=== PATIENT | female | born 1955 | race Caucasian/White ===

== ENCOUNTER 2017-03-19 05:04 | Inpatient (IN) | payer MEDICARE, OTHER ==
--- NOTE | ~2017-03-19 | HP ---
History And Physical [address] [place]. [address] NAME: JIA SARMIENTO : 59 STATUS : ADM IN PAT#: [id number] AGE: 61 ADM/REG DATE : 03/19/17 MR#: [id number] REPORT SERV DATE: 03/19/17 DICTATED BY: RAMONA SCOTT DATE: 03/19/17 REPORT STATUS : Draft TRANSCRIBED BY: MODL DATE: 03/19/17 DATE OF ADMISSION: 03/19/2017 CHIEF COMPLAINT: A 61-year-old female with cerebral palsy, now presenting with unresponsiveness and shortness of breath. HISTORY OF PRESENT ILLNESS: The patient's history was obtained through an interview with staff member from [facility]. The patient has chronic cerebral palsy with her organic brain syndrome, paraplegia, and dependent for all activities of daily living. Residing at [facility]. Over the last several days, she has had a poor appetite and has refused eating. No nausea or vomiting. No diarrhea. Then, just today she became increasingly short of breath with a nonproductive cough. No pain behavior. No fevers or chills. REVIEW OF SYSTEMS: Otherwise, a 14-point review of systems was obtained and was negative according to staff from [facility], although the person caring for patient was only been evaluating the patient during the nighttime hours. PAST MEDICAL HISTORY: 1. Hypothyroidism. 2. 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 3. Seizure disorder. Seen by Dr. Pal. 4. Gastroesophageal reflux disorder. 5. Dysphagia. 6. Rheumatic heart disease. 7. Tubular adenoma. 8. Elevated cholesterol. PAST SURGICAL HISTORY: 1. Vagal nerve stimulator. 2. Jejunostomy but then removed. Followed by Dr. Dickerson. ALLERGIES: NO KNOWN DRUG ALLERGIES. CODE STATUS: Sister who has power of state's attorney states the patient is a complete DNR, no intubation. SOCIAL HISTORY: No tobacco abuse. No alcohol abuse. Resides at [facility] in [place], [place] for the last three weeks. FAMILY HISTORY: Sister has power of state's attorney, lives in [place]. No known medical History And Physical [address] [address] NAME: JIA ASRMIENTO : 59 STATUS : ADM IN PAT#: [id number] AGE: 61 ADM/REG DATE : 03/19/17 MR#: [id number] REPORT SERV DATE: 03/19/17 DICTATED BY: RAMONA SCOTT DATE: 03/19/17 REPORT STATUS : Draft TRANSCRIBED BY: ERNESTO DATE: 03/19/17 conditions. CURRENT MEDICATIONS: Include bisacodyl, ear drops, Lipitor 20 mg p.o. daily, Klonopin 1 mg at bedtime, Forteo, Synthroid 25 mcg p.o. daily, vitamin D, antacid pills, milk of magnesia, Keppra 1750 mg p.o. b.i.d., Lamictal 150 mg p.o. b.i.d., simethicone. PHYSICAL EXAMINATION: VITAL SIGNS: Temperature 98.2, pulse 125, blood pressure 86/50, respiratory rate 20, and O2 saturation 96% on 6 L nasal cannula. GENERAL: Debilitated, toxic-appearing female, no evidence of distress, just extremely lethargic. HEENT: Pupils equal, round, and reactive to light. Nares are patent. Oropharynx is clear of obstruction. Very dry mucous membranes. NECK: Trachea midline. No thyromegaly. LYMPH: No cervical lymphadenopathy. No supraclavicular lymphadenopathy. RESPIRATORY: The patient does have scattered rhonchi on exam. No rales. No wheezes, nonlabored respiratory effort currently. CARDIOVASCULAR: Tachycardic, regular rhythm. No murmurs, rubs, or gallops. No extremity edema is appreciated. ABDOMEN: Soft, nontender, nondistended. Normal bowel sounds auscultated throughout. No hepatosplenomegaly. DERMATOLOGICAL: Warm and dry extremities. No pallor. No cyanosis. Tenting of the skin to suggest dehydration is noted. PSYCHIATRIC: Flat affect. Poorly responsive even to painful stimuli, irritable. LABORATORY DATA: White blood cell count 13.9, hemoglobin 18, hematocrit 64, platelets 131. Sodium 185, potassium 3.7, chloride 139, bicarb greater than 45, BUN 98, creatinine 2.61, glucose 188. AST 48, alkaline phosphatase 194. ABG demonstrates pH 7.42, a PaCO2 of 66, a PaO2 of 88, bicarb of 42. STUDIES: 1. Chest x-ray shows right upper lung patchy disease and basilar atelectasis. 2. EKG by my own evaluation shows sinus tachycardia. ASSESSMENT AND PLAN: 1. Severe hypernatremia with sodium of 185 and a 6.5 L calculated water deficit. Place on D10W and monitor basic metabolic panel closely. 2. Pneumonia. Check blood cultures. Place on IV antibiotics. 3. Acute renal failure. Place on IV fluids. Monitor. 4. Cerebral palsy with paraplegia. 5. DNR confirmed by sister, power of state's attorney. KPL/MODL Ramona Epstein History And Physical [address] [place]. [address] NAME: JIA SARMIENTO : 59 STATUS : ADM IN [facility]#: [id number] AGE: 61 ADM/REG DATE : 03/19/17 MR#: [id number] REPORT SERV DATE: 03/19/17 DICTATED BY: RAMONA SCOTT DATE: 03/19/17 REPORT STATUS : Draft TRANSCRIBED BY: ERNESTO DATE: 03/19/17 Vimal Scott / [id number] CC: Jessica Arceo M.D.
--- NOTE | ~2017-03-19 | CN ---
Consultation Report [address] [place]. [address] NAME: JIA ALEXANDRA : 59 STATUS : ADM IN PAT#: [id number] AGE: 61 ADM/REG DATE : 03/19/17 MR#: [id number] REPORT SERV DATE: 03/20/17 DICTATED BY: MAXIMILIANO CASTELLANO DATE: 03/20/17 REPORT STATUS : Draft TRANSCRIBED BY: ERNESTO DATE: 03/20/17 CONSULTATION DATE OF CONSULTATION: 03/20/2017 REASON FOR CONSULTATION: ST-elevations on EKG. HISTORY OF PRESENT ILLNESS: Ms Alexandra is a chronically ill 61-year-old female with a history of cerebral palsy and chronic paraplegia, bed-ridden status, nonverbal, DNR status, rheumatic heart disease, hyperlipidemia, and acid reflux, who was admitted yesterday with findings of decreased appetite as well as increased shortness of breath per her caregiver and family in the setting of pneumonia and sepsis. She has been started on IV antibiotics; however, this last night, was found to have ST-elevations on telemetry which prompted an EKG this morning demonstrating diffuse ST-elevations. This prompted consultation to Cardiology for further evaluation and care. As the patient is entirely nonverbal and not interactive, I am unable to obtain any further history. In speaking with the hospitalist and nurse; however, the patient has not demonstrated any overt signs of distress, or hemodynamic instability. ALLERGIES: NO KNOWN DRUG ALLERGIES. PAST MEDICAL HISTORY: As above. FAMILY HISTORY: The patient has a sister who functions as her Power of Pulp Cooker. She has confirmed DNR status and is fully in favor of conservative medical management. SOCIAL HISTORY: The patient stayed at [place], [place] over the past three weeks. She is bed-ridden. She is nonverbal. REVIEW OF SYSTEMS: Unable to obtain, given the patient's clinical status. HOME MEDICATIONS: 1. Lipitor. 2. Vitamin D. 3. Klonopin. 4. Lamictal. 5. Keppra. 6. Synthroid. 7. Milk of Magnesia. 8. Mytab Gas. 9. Forteo. PHYSICAL EXAMINATION: Consultation Report [place] [id number] [facility] [place]. [address] NAME: JIA ALEXANDRA : 59 STATUS : ADM IN PAT#: [id number] AGE: 61 ADM/REG DATE : 03/19/17 MR#: [id number] REPORT SERV DATE: 03/20/17 DICTATED BY: MAXIMILIANO CASTELLANO DATE: 03/20/17 REPORT STATUS : Draft TRANSCRIBED BY: ERNESTO DATE: 03/20/17 VITAL SIGNS: Blood pressure 129/63, pulse 65, and temperature 97.5. GENERAL: Chronically ill, bed-ridden, nonverbal, contracted extremities bilaterally upper and lower. NEUROLOGIC: Normocephalic, atraumatic, again nonverbal, no obvious focal new deficits present. HEENT: Moist mucous membranes, anicteric sclerae, no nasal discharge. NECK: No JVD, no carotid bruit. LUNGS: Clear to auscultation bilaterally, no wheezes, rales or rhonchi. CV: Regular rhythm, normal S1/S2, no murmurs, rubs or gallops. ABD: Soft, non-tender, non-distended, no rebound or guarding. EXTREMITIES: Contracted throughout (chronic), 1+ pulses throughout otherwise. SKIN: Warm, dry and intact; no rash. PERTINENT TEST FINDINGS: White blood cell count 10.3, hemoglobin 11.6, and platelets 74. Troponin 0.14 and 0.07 most recently. Potassium 3.3, sodium 166, and creatinine 1.24. EKG on my personal review with sinus rhythm at 76 beats per minute with a normal mean QRS axis, diffuse CA depressions and diffuse ST-elevations consistent with acute pericarditis. IMPRESSION AND PLAN: Ms Alexandra is a 61-year-old female, who is chronically ill with cerebral palsy of bed-ridden status, nonverbal and DNR, who was admitted with decreased appetite and increased shortness of breath in the setting of pneumo-sepsis, found to have diffuse ST-elevations and CA depressions most suggestive of pericarditis. Her cardiac enzymes are trivially elevated and down trending currently at 0.07, lowering the likelihood of myopericarditis. Accordingly, I recommend continued antibiotic and supportive care therapy with regard to her pneumo-sepsis. She is unable to take any oral medications, therefore dosing her with NSAIDs or colchicine is probably not feasible at this point in time. Should she have persistent pericarditis despite completing a full course of antibiotics, IV specific therapies may be explored if appropriate at that time. Otherwise, obtaining an echocardiogram will be helpful in the interim. LEE ANN/ERNESTO Maximiliano Castellano MD / [id number] CC: Michael Hinkle M.D.
--- NOTE | ~2017-03-19 | IDS ---
Interim Discharge Summary [facility] [address] [place]. [address] NAME: JIA SARMIENTO : 59 STATUS : ADM IN [facility]#: [id number] AGE: 61 ADM/REG DATE : 03/19/17 MR#: [id number] REPORT SERV DATE: 03/26/17 DICTATED BY: DATE: REPORT STATUS : Draft TRANSCRIBED BY: MODL DATE: 03/26/17 ADMISSION DATE: 03/19/2017 DISCHARGE DATE: [facility]: Dr. Maximiliano Morrow of Cardiology. DIAGNOSES: 1. Sepsis present at admission due to right lower lobe pneumonia-healthcare acquired versus community-acquired versus aspiration. Type unclear due to inability of the patient to produce sputum. 2. Diffuse ST elevation due to acute pericarditis. 3. Acute hypoxemic hypercapnic respiratory failure-suspect due to pneumonia versus metabolic encephalopathy, improved. 4. Severe hypernatremia and volume contraction with associated polycythemia, acute renal failure, contraction alkalosis. 5. Refusal of oral intake for 3 weeks preceding admission. Reason for refusal has been unclear. No evidence of oropharyngeal dysphagia or acute intraabdominal process. 6. History of cerebral palsy. 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 9. Seizure disorder. 10.Chronic constipation. 11.Hypothyroidism. IMAGIN. Portable chest x-ray, March 19, shows shallow inspiration with right basilar atelectasis. No acute cardiopulmonary abnormality. 2. Portable chest x-ray, March 19, shows diminished lung volumes with mild bibasilar atelectasis and trace pleural fluid. 3. Echocardiogram, March 20, for ST elevation on EKG. Left ventricular systolic function intact at 52%. Left atrial dilatation. Right ventricle systolic function intact. Mild to moderate mitral regurgitation. No prior studies for comparison. 4. Portable chest x-ray, March 21, shows low lung volumes with bilateral perihilar and bibasilar atelectasis. Trace left pleural fluid. 5. CT abdomen and pelvis, March 22, shows mild peripancreatic fat stranding. No evidence of pseudocyst. Moderate fecal distention of the rectum up to 7 cm. Mild fecal burden. No evidence of GI tract obstruction. Small bilateral pleural effusions with interstitial edema. 6. Portable chest x-ray, March 25, shows residual but improving right hilar atelectasis with trace to small right pleural effusion. PROCEDURES: Included replacement of a jejunostomy feeding tube in Interventional Radiology by Dr. Melgar on March 26. Interim Discharge Summary [place] [id number] [place]. [address] NAME: JIA SARMIENTO : 59 STATUS : ADM IN PAT#: [id number] AGE: 61 ADM/REG DATE : 03/19/17 MR#: [id number] REPORT SERV DATE: 03/26/17 DICTATED BY: DATE: REPORT STATUS : Draft TRANSCRIBED BY: MODL DATE: 03/26/17 PERTINENT LABS: Admission blood gas, pH 7.4, pCO2 66, PO2 88, oxygen saturation 96% on 6 L nasal cannula. Procalcitonin initially 0.6, sodium initially 185, chloride initially 148, creatinine initially 2.61. Liver enzymes normal with lipase 340. Troponin initially 0.14, TSH 0.59, serum osmolality initially 440, lactate initially 4.8. White blood cell count initially 13.9, hemoglobin initially 18.1 and platelets initially 131. INR 1.4. Urinalysis hazy with trace ketones, 14 red cells, rare bacteria, greater than 182 hyaline casts. Blood cultures x2 with no growth. BRIEF HISTORY: For full details, please see the previously dictated history of present illness by Dr. Toro Vernon. This is a 61-year-old female with cerebral palsy, organic brain syndrome, spastic quadriparesis, nonverbal at baseline who presented unresponsive with chief complaint of shortness of breath. The patient recently was residing at a [facility] facility in [place], [place]. That facility closed 3-4 weeks ago and the patient was moved to [facility]. She has been residing there since, but with limited oral intake due to unclear reasons. In the past, she had a J-tube and required that for feedings, but had not been J- tube dependent for several years. In fact, the J-tube had been discontinued. There was no evidence of nausea or vomiting, no diarrhea and no other complaints or symptoms that could be elicited. The patient just would not eat or drink, and then on the day of admission became increasingly short of breath with a nonproductive cough and was brought to the emergency department for evaluation. In the ER, she was found to be severely hypernatremic with a sodium of 185 and serum osmolality of 440. She was noted to have other associated lab abnormalities consistent with severe dehydration. There was also concern for a right lower lobe infiltrate on chest x-ray, and the patient was admitted to the hospitalist service for management of those conditions. HOSPITAL COURSE: The patient was admitted to [address] [place] [address]. On the first day of admission was noted to have ST elevation on the monitor. The patient was unable to communicate any presence or absence of chest pain. EKG was obtained and confirmed diffuse ST elevation. Troponin was mildly elevated at that time and there was concern for possible demand related ischemia versus pericarditis. Cardiology consultation was obtained and they felt the most likely diagnosis was pericarditis. Echocardiogram did not demonstrate any acute abnormalities and the patient's troponin down trended from that point. She was supported with oxygen initially for the hypoxemic respiratory failure and her initial antibiotics were Maxipime and vanc for concern of possible healthcare-acquired pneumonia. The patient's subsequent blood cultures were negative and a sputum sample could not be obtained for further culture. Subsequent radiographic imaging demonstrated improving or resolution of the infiltrate, and the patient was transitioned to Rocephin and azithromycin to complete a seven-day total course of antibiotics. She completed her azithromycin over the weekend and completed her Rocephin on March 25. Repeat chest x-ray obtained today shows again no evidence of infiltrate, and the patient has not had any leukocytosis or fevers since admission. For the severe volume contraction, with associated acute kidney injury, polycythemia, Interim Discharge Summary [address] [address] NAME: JIA SARMIENTO : 59 STATUS : ADM IN [facility]#: [id number] AGE: 61 ADM/REG DATE : 03/19/17 MR#: [id number] REPORT SERV DATE: 03/26/17 DICTATED BY: DATE: REPORT STATUS : Draft TRANSCRIBED BY: MODL DATE: 03/26/17 metabolic alkalosis, and hypotension-the patient was treated with D10W for several days through the hospitalization. After correction of the hypernatremia, the patient appeared slightly more alert and would occasionally take a few bites of ice cream or Ensure. Her IV fluids were discontinued to see whether she would be able to maintain her nutritional and hydration status on her own. Unfortunately, the patient does not take in sufficient amounts of calories or fluids to maintain normal volume and labs. After IV fluids were discontinued, she again became hypernatremic and hypotensive due to lack of good oral intake. Extensive discussions were had with her sister throughout this hospitalization in order to determine the goals of care and the most appropriate way to manage her sister's p.o. refusals. The patient does not appear to have any acute reasons to be refusing oral intake. A CT abdomen and pelvis was obtained just to ensure no acute intraabdominal process. Findings were of possible mild peripancreatic stranding but the lipase was normal and the patient had no clinical evidence of acute pancreatitis. The patient's prior jejunostomy tube site was still intact, and decision was made by the patient's sister to pursue replacement of the J-tube in Interventional Radiology. This occurred today on March 26, and the patient has been initiated on tube feeds and free water and home medications through J tube this evening. We will see how the patient tolerates her tube feeds over the next several days and if this helps improve her mentation. Otherwise during this hospitalization, she has had very minimal nutritional intake. It has been difficult to obtain labs from the patient and therefore we have been checking every 48 hours instead of daily most recently. Labs are pending for this morning but could not be obtained and are still pending this afternoon. The patient's sister is currently out of town but requested to be updated by phone daily. She wishes to continue to offer oral intake to her sister which we will do as she has passed prior dysphagia screens. Her Stephens catheter is being discontinued today to avoid any catheter associated complications. I have also asked for nursing staff to begin increasing the patient's activity-to get her up to her chair during the day. DISPOSITION: Anticipate the patient may be able to go back to [facility] over the next several days if the tube feed regimen can be determined and tolerated. AKS/MODL Michael Hinkle M.D. / [id number] Interim Discharge Summary [address] [address] NAME: JIA SARMIENTO : 59 STATUS : ADM IN [facility]#: [id number] AGE: 61 ADM/REG DATE : 03/19/17 MR#: [id number] REPORT SERV DATE: 03/26/17 DICTATED BY: DATE: REPORT STATUS : Draft TRANSCRIBED BY: MODL DATE: 03/26/17 CC: Michael Hinkle M.D.
--- NOTE | ~2017-03-19 | IDS ---
Interim Discharge Summary [facility] [address] [place]. [address] NAME: JIA SARMIENTO : 59 STATUS : ADM IN [facility]#: [id number] AGE: 61 ADM/REG DATE : 03/19/17 MR#: [id number] REPORT SERV DATE: 04/03/17 DICTATED BY: ROBBIE BRYSON DATE: 04/02/17 REPORT STATUS : Draft TRANSCRIBED BY: MODL DATE: 04/02/17 ADMISSION DATE: 03/19/2017 DISCHARGE DATE: WORKING DIAGNOSES: 1. Acute hypoxic respiratory failure, recurrent during this admission due to an aspiration episode. 2. Aspiration pneumonia. 3. Inability to tolerate tube feeds. 4. Diffuse ST-elevation due to acute pericarditis. 5. Acute pancreatitis. 6. Sepsis with healthcare-acquired pneumonia, present on admission. 7. Severe hypernatremia with volume contraction, present on admission. 8. Cerebral palsy. 9. Refusal of oral intake, been on J tube feedings, which she did not tolerate it as mentioned above. 10.Spastic quadriparesis. 11.Seizure disorder. 12.Chronic constipation. 13.Hypothyroidism. CONSULTANTS: None. PROCEDURES: None during this interim. HOSPITAL COURSE: This is a 61-year-old lady with several palsy and spastic quadriparesis who was admitted to the hospital initially with severe hypernatremia with volume contraction as well as pneumonia with sepsis. For details, please refer to H and P by Dr. Toro Vernon. Also, for details during this hospital stay, please refer to excellent interim discharge summary dictated by Dr. Michael Hinkle. I assumed care of this patient on 03/27/2017, and by then, the patient was getting ready for discharge. The goal at that time was for patient to be able to tolerate tube feeds at goal which was Jevity 1.5 at a rate of 60 mL/h. On the day I assumed care, the patient was actually given a bath where she was laid flat, and unfortunately, the tube feeding was not stopped as she was laid flat. The patient ended up aspirating. The patient was monitored initially for development of pneumonia off antibiotics as the patient's vital signs remained stable and she was not requiring any more oxygen. However by the next day, the patient's oxygen requirement had gone up and although the patient did not have any fevers, chills, or leukocytosis, the patient did have periodic worsening of hypotension on top of baseline hypotension. The patient's procalcitonin level was also found to be elevated. An efforts to still be able to transfer the patient to [facility] as planned. The patient was tried on a liquid form of Augmentin instead of getting started on IV antibiotics; however, the patient did not show much improvement and thus the patient was restarted on IV antibiotics, vancomycin and Zosyn, over the weekend. In the meantime, the patient's tube feeding was resumed and the patient was actually tolerating tube feeds at goal up until yesterday when the patient had another episode of aspiration without any obvious cause. I have been communicating extensively with the patient's sister, Interim Discharge Summary [address] [place]. [address] NAME: JIA SARMIENTO : 59 STATUS : ADM IN [facility]#: [id number] AGE: 61 ADM/REG DATE : 03/19/17 MR#: [id number] REPORT SERV DATE: 04/03/17 DICTATED BY: ROBBIE BRYSON DATE: 04/02/17 REPORT STATUS : Draft TRANSCRIBED BY: ERNESTO DATE: 04/02/17 Alanna, who is the POA and Alanna had been out of town for the entire week on vacation, but she had returned yesterday. After updating her what had happened, Alanna decided that the patient will benefit most from hospice care. [facility] was contacted today and they had a discussion with Alanna already. Currently, the plan is for hospice to take over tomorrow and discharge the patient back to [facility] tomorrow under hospice care provided the patient remains stable on current oxygen requirement of 4 liters. Should the patient's oxygen requirement increase overnight, hospice is considering hospice in the hospital versus finding another facility that can accommodate higher flow rate of oxygen. CHRISTA/ERNESTO Robbie Bryson MD / [id number] CC: Robbie Bryson MD
--- NOTE | ~2017-03-19 | DS ---
Discharge Summary [facility] [address] [place]. [address] NAME: JIA SARMIENTO : 59 STATUS : DIS IN PAT#: [id number] AGE: 61 ADM/REG DATE : 03/19/17 MR#: [id number] REPORT SERV DATE: 04/05/17 DICTATED BY: DATE: REPORT STATUS : Draft TRANSCRIBED BY: MODL DATE: 04/04/17 ADMISSION DATE: 03/19/2017 DISCHARGE DATE: 04/04/2017 [facility] ATTENDING PHYSICIAN: Michael Hinkle M.D. and Robbie De La Cruz M.D. CONSULTANTS: Included Dr. Maximiliano Morrow of Cardiology. DISCHARGE DIAGNOSES: 1. Sepsis present at admission due to right lower lobe pneumonia - healthcare acquired versus aspiration. Type unclear due to inability of the patient to produce sputum; however, clinically witnessed aspiration events x2 on March 27 and April 01 suggestive of most likely aspiration pneumonia. 2. Diffuse ST elevation due to acute pericarditis. 3. Acute hypoxemic hypercapnic respiratory failure - due to pneumonia versus metabolic encephalopathy, improved at discharge, requiring supplemental p.r.n. oxygen only. 4. Severe hypernatremia and volume contraction with associated polycythemia, acute renal failure, contraction alkalosis. 5. Refusal of oral intake three weeks preceding admission. Reason for refusal unclear. No evidence of oropharyngeal dysphagia or acute intraabdominal process. Status post J- tube replacement, with some intolerance of J-tube feedings and some leakage around the J-tube. 6. History of cerebral palsy. 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 9. Seizure disorder. 10.Chronic constipation. 11.Hypothyroidism. 12.Elevated lipase, but no radiographic evidence of acute pancreatitis. IMAGING AND DIAGNOSTICS: For full details, please reference previously dictated interim summaries on March 26 and April 03. Essentially, the patient had multiple chest x-rays this admission demonstrating mild bibasilar atelectasis versus infiltrates and trace bilateral pleural fluid. Chest x-ray was last obtained on April 03 demonstrating improvement in infiltrates. The patient also underwent an echocardiogram this admission showing normal left ventricular systolic function, left atrial dilatation, [id number] mitral regurgitation. The patient also underwent a CT abdomen and pelvis showing possible mild peripancreatic fat stranding and moderate fecal distention with mild fecal burden. PROCEDURES: Included replacement of a jejunostomy feeding tube in Interventional Radiology by Dr. Melgar on March 26. PERTINENT LABS: Please reference the previously dictated interim summaries. Initial blood gas showed pH 7.4, pCO2 of 66, pO2 of 88, oxygen saturation 96% on 6 L nasal cannula. Discharge Summary [place] [place] [id number] [place]. [address] NAME: JIA SARMIENTO : 59 STATUS : DIS IN PAT#: [id number] AGE: 61 ADM/REG DATE : 03/19/17 MR#: [id number] REPORT SERV DATE: 04/05/17 DICTATED BY: DATE: REPORT STATUS : Draft TRANSCRIBED BY: MODL DATE: 04/04/17 Procalcitonin was elevated at 0.6. Initial sodium of 185 and initial chloride 148, initial creatinine 2.6. Liver enzymes were normal and lipase was 340. Initial troponin 0.14 with TSH 0.59. Initial serum osmolality was 440 and initial lactate 4.8. Initial white blood cell count 13.9. Initial hemoglobin 18.1. Urinalysis was normal with the exception of greater than 182 hyaline casts. Blood cultures were negative. At the time of discharge, patient's white blood cell count is 4.3, hemoglobin 10.8, platelets 316, creatinine 0.38, sodium 144, chloride 109, bicarb 23, and electrolytes show mild decrease in potassium at 3.3 and mild decrease in magnesium at 1.7. BRIEF HISTORY: For full details, please see the previously dictated history of present illness by Toro Vernon. This is a 61-year-old female with cerebral palsy, organic brain syndrome, spastic quadriparesis, nonverbal at baseline. She presented unresponsive with a chief complaint of shortness of breath. The patient recently was residing at a [facility] facility in [place], [place]. The facility closed several weeks prior to admission, and the patient was moved to [facility]. She had been residing there since, with limited oral intake due to unclear reasons. In the past, she had a J-tube for dysphagia, but this had been discontinued, and she had not required J-tube feedings for several years. The patient had no evidence of nausea, vomiting, or diarrhea. Prior to admission, she just would not eat or drink. On the day of admission, she became increasingly short of breath with a nonproductive cough and was brought to the ER for evaluation. There she was found to be severely hypernatremic with a sodium of 185 and a serum osmolality of 440. She was noted to have other associated lab abnormalities consistent with severe dehydration. There was also concern for right lower lobe infiltrate on chest x-ray, and the patient was admitted to the Hospitalist Service for management of those conditions. HOSPITAL COURSE: For full details, please reference interim discharge summaries from March 26 and April 03. The patient was treated for dehydration and electrolyte abnormalities. She was also treated for hospital acquired versus aspiration pneumonia. Despite correction of these underlying causes of encephalopathy and p.o. refusal, she continued to have minimal p.o. intake. Her J-tube was replaced in Interventional Radiology without complication on 03/26/2017. Her prior J-tube track was recannulated. Tube feeds were initiated on that day, but unfortunately, the patient demonstrated some tube feed intolerance in the form of increased gastric residuals, and aspiration of tube feed contents on both March 27 and April 01. The patient was initially monitored after the March 27 event off antibiotics as her vital signs remained stable, and she was not requiring any increase in supplemental oxygen. However, shortly thereafter, the patient's oxygen requirement increased and although she did not have any fevers, chills, or leukocytosis, she did have some periodic worsening of hypotension. Her procalcitonin was found to be elevated, and she was started on Augmentin. However, she did not show much improvement and thus the patient was restarted on IV vancomycin and Zosyn on April 01. The patient did demonstrate a recurrent aspiration event on April 01, this one without any obvious cause. At that point, Dr. De La Cruz communicated with the patient's sister, power of contract attorney Alanna Franks, who decided that the patient would benefit most from hospice care. Her tube feeds were held at that point, and she was allowed to continue taking what she may by mouth, but decision was made for no supplemental nutrition or hydration to be provided through her J- tube. Discharge Summary [place] [address] [facility] [place]. [address] NAME: JIA SARMIENTO : 59 STATUS : DIS IN PAT#: [id number] AGE: 61 ADM/REG DATE : 03/19/17 MR#: [id number] REPORT SERV DATE: 04/05/17 DICTATED BY: DATE: REPORT STATUS : Draft TRANSCRIBED BY: ERNESTO DATE: 04/04/17 [facility] met with the patient and sister on two occasions in the hospital, to answer all questions and review philosophy of care. The patient was felt appropriate for transfer back to [facility] with hospice care on April 04. The patient will continue to eat by mouth what she is able to or interested in but will not be provided with any supplemental tube feeds or artificial hydration through her J-tube. Her essential medications will be crushed and administered via her J-tube. This would include her seizure medications and her thyroid medication. The patient also has several days of Augmentin to complete for the aspiration event on April 01 - her seventh day of antibiotics will be administered on April 07, and discontinued thereafter. She will use supplemental oxygen at the facility as needed to keep her oxygen saturations more than 88%. DISCHARGE DISPOSITION: To [facility] with hospice care as outlined above. DISCHARGE MEDICATIONS: 1. Lamictal 300 mg p.o. or per J-tube twice a day. 2. Levothyroxine 25 mcg p.o. or per J-tube daily. 3. Klonopin 1 mg p.o. or per J-tube at bedtime. 4. Keppra 1750 mg p.o. or per J-tube twice a day. 5. Klonopin 0.5 mg p.o. or per J-tube 3 times a day. 6. Vitamin D 1000 units p.o. or per J-tube daily. 7. Tums two tablets p.o. or per J-tube twice a day. 8. Milk of magnesium 20 mL p.o. or per J-tube twice a day as needed. 9. Simethicone 80 mg p.o. or per J-tube twice a day as needed. 10.Dulcolax 10 mg per rectum daily as needed. 11.Carbamide peroxide ear drops in both ears Sunday, Sunday, and Sunday for ceruminosis. 12.Augmentin elixir 875/125 mg per G-tube twice a day through 04/07/2017, then discontinue. 40 minutes was spent in completion of the discharge summary and coordination of discharge plan with the patient's power of contract attorney, case management, and [facility]. DICTATED BY: Vimal Zamora/ERNESTO Michael Hinkle M.D. / [id number] CC: Michael Hinkle M.D. Discharge Summary [address] [address] NAME: JIA SARMIENTO : 59 STATUS : DIS IN PAT#: [id number] AGE: 61 ADM/REG DATE : 03/19/17 MR#: [id number] REPORT SERV DATE: 04/05/17 DICTATED BY: DATE: REPORT STATUS : Draft TRANSCRIBED BY: ERNESTO DATE: 04/04/17 [facility]
[2017-03-19 04:08] LABS: ALLENS TEST Pos; BE (BASE EXCESS) 13.1 MEQ/L (0 +/- 2.5); CARBOXYHEMOGLOBIN 1.1 % (0-3); DEVICE NC; HCO3 (ACTUAL BICARBONATE) 41.7 MEQ/L (23-27); HEMOBLOGIN CONTENT 17.9 G/DL (12-16); INSTRUMENT SERIAL # 8087; METHEMOGLOBIN 0.6 % (0-3); O2 CONTENT 23.9 VOL% (18-24); PCO2 (CO2 TENSION) 66 MMHG (35-45); PO2 (O2 TENSION) 88 MMHG (79-93); SAMPLE Arterial; pH 7.42 (7.37-7.43)
[2017-03-19 04:15] LABS: BASOPHILS 0.1 %; BASOPHILS ABSOLUTE 0.02 10/3/uL (0.0-0.16); EOSINOPHILS 0 %; ER CBC TAT 0 Hrs 09 Mins; HEMOGLOBIN 18.1 g/dL (12.0-16.0); IMMATURE GRANULOCYTES 0.5 %; IMMATURE GRANULOCYTES ABSOLUTE 0.07 10/3/uL (0.0-0.11); LYMPHOCYTES 12.2 %; LYMPHOCYTES ABSOLUTE 1.69 10/3/uL (0.67-4.30); MEAN CORPUS HGB CONC 28.4 g/dL (32.0-36.0); MEAN CORPUSCULAR HEMOGLOB 30.6 pg (26.0-34.0); MEAN PLATELET VOLUME 13.7 fL (9.2-13.0); MONOCYTES 4.2 %; MONOCYTES ABSOLUTE 0.59 10/3/uL (0.21-1.20); NEUTROPHILS ABSOLUTE 11.52 10/3/uL (2.02-8.40); PLATELET COUNT 131 10/3/uL (150-400); RBC DISTRIBUTION WIDTH 14.3 % (12.0-16.0); RED CELL COUNT 5.91 10/6/uL (4.0-5.6); WHITE BLOOD CELLS 13.9 10/3/uL (4.5-10.5)
[2017-03-19 04:16] LABS: HEMATOCRIT 63.8 % (36.0-48.0)
[2017-03-19 04:18] LABS: MANUAL DIFF NO %
[2017-03-19 04:29] LABS: A/G RATIO 0.8 (0.7-1.9); ALBUMIN 3.5 G/DL (3.5-5.0); ALKALINE PHOSPHATASE 194 U/L (45-117); BUN (BLOOD UREA NITROGEN) 98 MG/DL (6-23); CALCIUM, SERUM 11.6 MG/DL (8.5-10.4); CHLORIDE, SERUM 139 MMOL/L (96-112); CREATININE 2.61 MG/DL (0.55-1.02); GFR AFRICAN AMERICAN 22 ML/MIN (>=60); GFR NON AFRICAN AMERICAN 19 ML/MIN (>=60); GLOBULIN 4.6 G/DL (2.5-4.1); GLUCOSE, SERUM 188 MG/DL (60-99); POTASSIUM, SERUM 3.7 MMOL/L (3.5-5.3); SGOT(AST) 48 U/L (5-40); SGPT(ALT) 33 U/L (5-65); TOTAL BILIRUBIN 0.5 MG/DL (0-1.2); TOTAL PROTEIN 8.1 G/DL (6.0-8.5)
[2017-03-19 04:31] LABS: CO2 (CARBON DIOXIDE) > 45 MMOL/L (24-34); SODIUM, SERUM 185 MMOL/L (135-148)
[2017-03-19 04:52] LABS: LACTATE 4.8 MMOL/L (0.3-2.4)
[~2017-03-19 05:04] MED LIST: FORTEO SC; KEPPRA1000 MG PO; KEPPRA750 MG PO; KLONO1 PO; KLONO5 PO; LAMICTAL150 MG PO; LIPITOR20 PO; MOMUD PO; MYTAB GAS80 MG PO; SYN.025B PO; VITAMIN D31000 UNIT PO
[2017-03-19 05:41] LABS: PROCALCITONIN 0.61 ng/mL (<0.5)
[2017-03-19 10:19] LABS: ASCORBIC ACID (UR NOT ORDER) NEG (NEG); BILIRUBIN, URINE NEGATIVE (NEG); KETONE, URINE TRACE MG/DL (NEG); LEUKOCYTE ESTERASE(NOT OR NEG (NEG); WBC (NOT ORDERED) (RFLEX) 4 (0-5)
[2017-03-19 11:13] LABS: BASOPHILS 0.1 %; BASOPHILS ABSOLUTE 0.02 10/3/uL (0.0-0.16); EOSINOPHILS 0 %; IMMATURE GRANULOCYTES 0.5 %; IMMATURE GRANULOCYTES ABSOLUTE 0.07 10/3/uL (0.0-0.11); LYMPHOCYTES 21.2 %; LYMPHOCYTES ABSOLUTE 3.25 10/3/uL (0.67-4.30); MEAN CORPUSCULAR HEMOGLOB 29.5 pg (26.0-34.0); MEAN CORPUSCULAR VOLUME 109.3 fL (80-100); MEAN PLATELET VOLUME 13.4 fL (9.2-13.0); MONOCYTES 4.2 %; MONOCYTES ABSOLUTE 0.64 10/3/uL (0.21-1.20); NEUTROPHILS ABSOLUTE 11.34 10/3/uL (2.02-8.40); PLATELET COUNT 95 10/3/uL (150-400); RBC DISTRIBUTION WIDTH 14.6 % (12.0-16.0); WHITE BLOOD CELLS 15.3 10/3/uL (4.5-10.5)
[2017-03-19 11:17] LABS: HEMOGLOBIN 13.6 g/dL (12.0-16.0); RED CELL COUNT 4.61 10/6/uL (4.0-5.6)
[2017-03-19 11:18] LABS: HEMATOCRIT 50.4 % (36.0-48.0); MANUAL DIFF NO %
[2017-03-19 11:22] LABS: A/G RATIO 0.8 (0.7-1.9); ALBUMIN 2.6 G/DL (3.5-5.0); ALKALINE PHOSPHATASE 139 U/L (45-117); BUN (BLOOD UREA NITROGEN) 91 MG/DL (6-23); CALCIUM, SERUM 9.3 MG/DL (8.5-10.4); CHLORIDE, SERUM 148 MMOL/L (96-112); CO2 (CARBON DIOXIDE) 37 MMOL/L (24-34); CREATININE 2.08 MG/DL (0.55-1.02); GFR AFRICAN AMERICAN 29 ML/MIN (>=60); GFR NON AFRICAN AMERICAN 25 ML/MIN (>=60); GLOBULIN 3.3 G/DL (2.5-4.1); GLUCOSE, SERUM 235 MG/DL (60-99); POTASSIUM, SERUM 3.4 MMOL/L (3.5-5.3); SGOT(AST) 35 U/L (5-40); SGPT(ALT) 23 U/L (5-65); SODIUM, SERUM 183 MMOL/L (135-148); TOTAL BILIRUBIN 0.3 MG/DL (0-1.2); TOTAL PROTEIN 5.9 G/DL (6.0-8.5); ULTRASENSITIVE TSH 0.593 MCIU/ML (0.358-3.740)
[2017-03-19 11:23] LABS: TROPONIN I 0.14 NG/ML (<0.05)
[2017-03-19 11:25] LABS: INTERNATIONAL NORMAL RATI 1.4 UNITS (-); PARTIAL THROMBO TIME 43.4 SEC (22.5-37.2); PROTIME (NOT ORD) 16.7 SEC (12.0-14.5)
[2017-03-19 11:44] LABS: PLATELET ESTIMATE DEC (ADEQUATE)
[2017-03-19] MEDS ORDERED: LIPITOR20 PO (12:48)
[2017-03-19] MEDS ORDERED: FORTEO SC (12:50)
[2017-03-19] MEDS ORDERED: KLONO1 PO (12:50)
[2017-03-19] MEDS ORDERED: VITAMIN D1000 UNI1 PO (12:52)
[2017-03-19] MEDS ORDERED: SYN.025B PO (12:52)
[2017-03-19] MEDS ORDERED: TUMSROLL PO (12:54)
[2017-03-19] MEDS ORDERED: LAMICTAL150 MG PO (12:55)
[2017-03-19] MEDS ORDERED: KEPPRA1000 MG PO (12:57)
[2017-03-19] MEDS ORDERED: KEPPRA750 MG PO (12:57)
[2017-03-19] MEDS ORDERED: KLONO5 PO (12:58)
[2017-03-19] MEDS ORDERED: MOMUD PO (12:59)
[2017-03-19] MEDS ORDERED: MYTAB GAS80 MG PO (13:00)
[2017-03-19] MEDS ORDERED: BISR PR (13:03)
[2017-03-19] MEDS ORDERED: [UNRECOGNIZED DRUG - OTHER] OT (13:05)
[2017-03-19 23:49] LABS: CALCIUM, SERUM 9.1 MG/DL (8.5-10.4); CHLORIDE, SERUM 143 MMOL/L (96-112); CO2 (CARBON DIOXIDE) 36 MMOL/L (24-34); POTASSIUM, SERUM 3.1 MMOL/L (3.5-5.3)
[2017-03-19 23:50] LABS: BUN (BLOOD UREA NITROGEN) 80 MG/DL (6-23); CREATININE 1.54 MG/DL (0.55-1.02); GFR AFRICAN AMERICAN 42 ML/MIN (>=60); GFR NON AFRICAN AMERICAN 37 ML/MIN (>=60); GLUCOSE, SERUM 138 MG/DL (60-99); SODIUM, SERUM 179 MMOL/L (135-148)
[2017-03-20 10:05] LABS: BASOPHILS 0.1 %; BASOPHILS ABSOLUTE 0.01 10/3/uL (0.0-0.16); EOSINOPHILS 1.1 %; EOSINOPHILS ABSOLUTE 0.11 10/3/uL (0.0-0.53); HEMOGLOBIN 11.6 g/dL (12.0-16.0); IMMATURE GRANULOCYTES 0.4 %; IMMATURE GRANULOCYTES ABSOLUTE 0.04 10/3/uL (0.0-0.11); LYMPHOCYTES 26.5 %; LYMPHOCYTES ABSOLUTE 2.73 10/3/uL (0.67-4.30); MEAN CORPUS HGB CONC 27.8 g/dL (32.0-36.0); MEAN CORPUSCULAR HEMOGLOB 29.4 pg (26.0-34.0); MEAN CORPUSCULAR VOLUME 106.1 fL (80-100); MEAN PLATELET VOLUME 13.2 fL (9.2-13.0); MONOCYTES 4.1 %; MONOCYTES ABSOLUTE 0.42 10/3/uL (0.21-1.20); NEUTROPHILS 67.8 %; NEUTROPHILS ABSOLUTE 6.99 10/3/uL (2.02-8.40); PLATELET COUNT 74 10/3/uL (150-400); RBC DISTRIBUTION WIDTH 14.3 % (12.0-16.0); RED CELL COUNT 3.94 10/6/uL (4.0-5.6); WHITE BLOOD CELLS 10.3 10/3/uL (4.5-10.5)
[2017-03-20 10:17] LABS: CALCIUM, SERUM 8.7 MG/DL (8.5-10.4); CHLORIDE, SERUM 134 MMOL/L (96-112); CREATININE 1.24 MG/DL (0.55-1.02); GFR AFRICAN AMERICAN 55 ML/MIN (>=60); GFR NON AFRICAN AMERICAN 48 ML/MIN (>=60); POTASSIUM, SERUM 3.3 MMOL/L (3.5-5.3)
[2017-03-20 10:18] LABS: BUN (BLOOD UREA NITROGEN) 67 MG/DL (6-23); CO2 (CARBON DIOXIDE) 30 MMOL/L (24-34); GLUCOSE, SERUM 166 MG/DL (60-99); SODIUM, SERUM 166 MMOL/L (135-148); TROPONIN I 0.07 NG/ML (<0.05)
[2017-03-20 10:37] LABS: HEMATOCRIT 41.8 % (36.0-48.0); MANUAL DIFF NO %
[2017-03-20 10:38] LABS: MACROCYTES 1+ (5-10/OIF) (0-5/OIF); PLATELET ESTIMATE DEC (ADEQUATE)
[2017-03-20 21:31] LABS: CALCIUM, SERUM 8.3 MG/DL (8.5-10.4); CHLORIDE, SERUM 131 MMOL/L (96-112); CO2 (CARBON DIOXIDE) 31 MMOL/L (24-34); CREATININE 0.95 MG/DL (0.55-1.02); GFR AFRICAN AMERICAN 76 ML/MIN (>=60); GFR NON AFRICAN AMERICAN 66 ML/MIN (>=60); GLUCOSE, SERUM 195 MG/DL (60-99); POTASSIUM, SERUM 3.2 MMOL/L (3.5-5.3)
[2017-03-20 21:32] LABS: BUN (BLOOD UREA NITROGEN) 56 MG/DL (6-23); SODIUM, SERUM 165 MMOL/L (135-148)
[2017-03-21 11:17] LABS: BASOPHILS 0.3 %; BASOPHILS ABSOLUTE 0.02 10/3/uL (0.0-0.16); EOSINOPHILS 2.1 %; EOSINOPHILS ABSOLUTE 0.14 10/3/uL (0.0-0.53); HEMATOCRIT 38.5 % (36.0-48.0); HEMOGLOBIN 11.2 g/dL (12.0-16.0); IMMATURE GRANULOCYTES 0.4 %; IMMATURE GRANULOCYTES ABSOLUTE 0.03 10/3/uL (0.0-0.11); LYMPHOCYTES 24.6 %; LYMPHOCYTES ABSOLUTE 1.67 10/3/uL (0.67-4.30); MEAN CORPUS HGB CONC 29.1 g/dL (32.0-36.0); MEAN CORPUSCULAR HEMOGLOB 29.7 pg (26.0-34.0); MEAN PLATELET VOLUME 13.7 fL (9.2-13.0); MONOCYTES 3.7 %; MONOCYTES ABSOLUTE 0.25 10/3/uL (0.21-1.20); NEUTROPHILS 68.9 %; NEUTROPHILS ABSOLUTE 4.69 10/3/uL (2.02-8.40); PLATELET COUNT 76 10/3/uL (150-400); RBC DISTRIBUTION WIDTH 13.5 % (12.0-16.0); RED CELL COUNT 3.77 10/6/uL (4.0-5.6); WHITE BLOOD CELLS 6.8 10/3/uL (4.5-10.5)
[2017-03-21 11:19] LABS: MANUAL DIFF NO %; MEAN CORPUSCULAR VOLUME 102.1 fL (80-100)
[2017-03-21 11:33] LABS: BUN (BLOOD UREA NITROGEN) 45 MG/DL (6-23); CHLORIDE, SERUM 125 MMOL/L (96-112); CO2 (CARBON DIOXIDE) 33 MMOL/L (24-34); CREATININE 0.76 MG/DL (0.55-1.02); GFR AFRICAN AMERICAN 100 ML/MIN (>=60); GFR NON AFRICAN AMERICAN 86 ML/MIN (>=60); GLUCOSE, SERUM 151 MG/DL (60-99); POTASSIUM, SERUM 3.3 MMOL/L (3.5-5.3); SODIUM, SERUM 159 MMOL/L (135-148); TROPONIN I 0.05 NG/ML (<0.05)
[2017-03-21 12:06] LABS: PLATELET ESTIMATE DEC (ADEQUATE); RBC MORPHOLOGY NORM (NORMAL)
[2017-03-21 12:21] LABS: PROCALCITONIN 0.42 ng/mL (<0.5)
[2017-03-22 08:21] LABS: BASOPHILS 0.2 %; BASOPHILS ABSOLUTE 0.01 10/3/uL (0.0-0.16); EOSINOPHILS 2.3 %; EOSINOPHILS ABSOLUTE 0.12 10/3/uL (0.0-0.53); HEMOGLOBIN 11.8 g/dL (12.0-16.0); IMMATURE GRANULOCYTES ABSOLUTE 0.05 10/3/uL (0.0-0.11); LYMPHOCYTES 25.9 %; LYMPHOCYTES ABSOLUTE 1.36 10/3/uL (0.67-4.30); MANUAL DIFF NO %; MEAN CORPUS HGB CONC 30.3 g/dL (32.0-36.0); MEAN CORPUSCULAR HEMOGLOB 29.2 pg (26.0-34.0); MEAN CORPUSCULAR VOLUME 96.5 fL (80-100); MEAN PLATELET VOLUME 13.2 fL (9.2-13.0); MONOCYTES 5.1 %; MONOCYTES ABSOLUTE 0.27 10/3/uL (0.21-1.20); NEUTROPHILS 65.5 %; NEUTROPHILS ABSOLUTE 3.44 10/3/uL (2.02-8.40); PLATELET COUNT 64 10/3/uL (150-400); RBC DISTRIBUTION WIDTH 12.8 % (12.0-16.0); RED CELL COUNT 4.04 10/6/uL (4.0-5.6); WHITE BLOOD CELLS 5.3 10/3/uL (4.5-10.5)
[2017-03-22 08:33] LABS: BUN (BLOOD UREA NITROGEN) 31 MG/DL (6-23); CALCIUM, SERUM 8.1 MG/DL (8.5-10.4); CHLORIDE, SERUM 115 MMOL/L (96-112); CO2 (CARBON DIOXIDE) 30 MMOL/L (24-34); GFR AFRICAN AMERICAN 110 ML/MIN (>=60); GFR NON AFRICAN AMERICAN 95 ML/MIN (>=60); GLUCOSE, SERUM 137 MG/DL (60-99); SODIUM, SERUM 150 MMOL/L (135-148)
[2017-03-22 09:18] LABS: PROCALCITONIN 0.24 ng/mL (<0.5)
[2017-03-22 21:21] LABS: CALCIUM, SERUM 7.4 MG/DL (8.5-10.4); CHLORIDE, SERUM 116 MMOL/L (96-112); CO2 (CARBON DIOXIDE) 30 MMOL/L (24-34); CREATININE 0.63 MG/DL (0.55-1.02); GFR AFRICAN AMERICAN 114 ML/MIN (>=60); GFR NON AFRICAN AMERICAN 98 ML/MIN (>=60); GLUCOSE, SERUM 141 MG/DL (60-99); POTASSIUM, SERUM 3.1 MMOL/L (3.5-5.3); SODIUM, SERUM 149 MMOL/L (135-148)
[2017-03-22 21:22] LABS: BUN (BLOOD UREA NITROGEN) 22 MG/DL (6-23)
[2017-03-23 09:31] LABS: BASOPHILS 0.2 %; BASOPHILS ABSOLUTE 0.01 10/3/uL (0.0-0.16); EOSINOPHILS 2.4 %; EOSINOPHILS ABSOLUTE 0.11 10/3/uL (0.0-0.53); HEMOGLOBIN 12.5 g/dL (12.0-16.0); IMMATURE GRANULOCYTES 1.3 %; IMMATURE GRANULOCYTES ABSOLUTE 0.06 10/3/uL (0.0-0.11); LYMPHOCYTES 22.6 %; LYMPHOCYTES ABSOLUTE 1.05 10/3/uL (0.67-4.30); MEAN CORPUSCULAR HEMOGLOB 29.8 pg (26.0-34.0); MEAN PLATELET VOLUME 13.3 fL (9.2-13.0); MONOCYTES 6.2 %; MONOCYTES ABSOLUTE 0.29 10/3/uL (0.21-1.20); NEUTROPHILS 67.3 %; NEUTROPHILS ABSOLUTE 3.13 10/3/uL (2.02-8.40); RBC DISTRIBUTION WIDTH 12.6 % (12.0-16.0); WHITE BLOOD CELLS 4.7 10/3/uL (4.5-10.5)
[2017-03-23 09:33] LABS: MANUAL DIFF NO %; MEAN CORPUS HGB CONC 32.9 g/dL (32.0-36.0); MEAN CORPUSCULAR VOLUME 90.5 fL (80-100); PLATELET COUNT 136 10/3/uL (150-400)
[2017-03-23 10:26] LABS: PLATELET ESTIMATE SLT DEC (ADEQUATE); RBC MORPHOLOGY NORM (NORMAL)
[2017-03-23 14:06] LABS: BUN (BLOOD UREA NITROGEN) 10 MG/DL (6-23); CHLORIDE, SERUM 115 MMOL/L (96-112); CO2 (CARBON DIOXIDE) 29 MMOL/L (24-34); CREATININE 0.68 MG/DL (0.55-1.02); GFR AFRICAN AMERICAN 111 ML/MIN (>=60); GFR NON AFRICAN AMERICAN 96 ML/MIN (>=60); GLUCOSE, SERUM 121 MG/DL (60-99); POTASSIUM, SERUM 3.4 MMOL/L (3.5-5.3); SODIUM, SERUM 148 MMOL/L (135-148)
[2017-03-24 11:25] LABS: CALCIUM, SERUM 7.5 MG/DL (8.5-10.4); CHLORIDE, SERUM 115 MMOL/L (96-112); CO2 (CARBON DIOXIDE) 28 MMOL/L (24-34); CREATININE 0.71 MG/DL (0.55-1.02); GFR AFRICAN AMERICAN 108 ML/MIN (>=60); GFR NON AFRICAN AMERICAN 93 ML/MIN (>=60); GLUCOSE, SERUM 97 MG/DL (60-99); SODIUM, SERUM 148 MMOL/L (135-148)
[2017-03-24 11:28] LABS: BUN (BLOOD UREA NITROGEN) 4 MG/DL (6-23); POTASSIUM, SERUM 4.4 MMOL/L (3.5-5.3)
[2017-03-25 05:26] LABS: BUN (BLOOD UREA NITROGEN) 6 MG/DL (6-23); CALCIUM, SERUM 7.8 MG/DL (8.5-10.4); CHLORIDE, SERUM 118 MMOL/L (96-112); CO2 (CARBON DIOXIDE) 29 MMOL/L (24-34); CREATININE 0.44 MG/DL (0.55-1.02); GFR AFRICAN AMERICAN 128 ML/MIN (>=60); GFR NON AFRICAN AMERICAN 110 ML/MIN (>=60); GLUCOSE, SERUM 80 MG/DL (60-99); POTASSIUM, SERUM 4.3 MMOL/L (3.5-5.3); SODIUM, SERUM 151 MMOL/L (135-148)
[2017-03-25 07:34] LABS: BASOPHILS 0.5 %; BASOPHILS ABSOLUTE 0.02 10/3/uL (0.0-0.16); EOSINOPHILS 3.3 %; EOSINOPHILS ABSOLUTE 0.13 10/3/uL (0.0-0.53); HEMOGLOBIN 10.1 g/dL (12.0-16.0); IMMATURE GRANULOCYTES 1.8 %; IMMATURE GRANULOCYTES ABSOLUTE 0.07 10/3/uL (0.0-0.11); LYMPHOCYTES 45.3 %; MEAN CORPUS HGB CONC 32.2 g/dL (32.0-36.0); MEAN CORPUSCULAR HEMOGLOB 29.1 pg (26.0-34.0); MEAN CORPUSCULAR VOLUME 90.5 fL (80-100); MEAN PLATELET VOLUME 11.1 fL (9.2-13.0); MONOCYTES 7.6 %; NEUTROPHILS 41.5 %; NEUTROPHILS ABSOLUTE 1.65 10/3/uL (2.02-8.40); PLATELET COUNT 103 10/3/uL (150-400); RBC DISTRIBUTION WIDTH 12.9 % (12.0-16.0); RED CELL COUNT 3.47 10/6/uL (4.0-5.6)
[2017-03-25 07:38] LABS: HEMATOCRIT 31.4 % (36.0-48.0); MANUAL DIFF NO %
[2017-03-26 17:03] LABS: BASOPHILS 0.3 %; BASOPHILS ABSOLUTE 0.01 10/3/uL (0.0-0.16); EOSINOPHILS 2.8 %; EOSINOPHILS ABSOLUTE 0.11 10/3/uL (0.0-0.53); HEMOGLOBIN 12.1 g/dL (12.0-16.0); IMMATURE GRANULOCYTES 1.3 %; IMMATURE GRANULOCYTES ABSOLUTE 0.05 10/3/uL (0.0-0.11); LYMPHOCYTES 36.9 %; LYMPHOCYTES ABSOLUTE 1.46 10/3/uL (0.67-4.30); MEAN CORPUS HGB CONC 32.7 g/dL (32.0-36.0); MEAN CORPUSCULAR HEMOGLOB 29.2 pg (26.0-34.0); MEAN CORPUSCULAR VOLUME 89.4 fL (80-100); MONOCYTES 7.8 %; MONOCYTES ABSOLUTE 0.31 10/3/uL (0.21-1.20); NEUTROPHILS 50.9 %; NEUTROPHILS ABSOLUTE 2.02 10/3/uL (2.02-8.40); RBC DISTRIBUTION WIDTH 12.7 % (12.0-16.0); RED CELL COUNT 4.14 10/6/uL (4.0-5.6)
[2017-03-26 17:04] LABS: MANUAL DIFF NO %; PLATELET COUNT 174 10/3/uL (150-400)
[2017-03-26 17:18] LABS: BUN (BLOOD UREA NITROGEN) 3 MG/DL (6-23); CALCIUM, SERUM 7.8 MG/DL (8.5-10.4); CHLORIDE, SERUM 111 MMOL/L (96-112); CO2 (CARBON DIOXIDE) 31 MMOL/L (24-34); CREATININE 0.41 MG/DL (0.55-1.02); GFR AFRICAN AMERICAN 131 ML/MIN (>=60); GFR NON AFRICAN AMERICAN 113 ML/MIN (>=60); SGOT(AST) 51 U/L (5-40); SGPT(ALT) 53 U/L (5-65); SODIUM, SERUM 145 MMOL/L (135-148); TOTAL BILIRUBIN 0.2 MG/DL (0-1.2)
[2017-03-26 17:19] LABS: A/G RATIO 0.6 (0.7-1.9); ALBUMIN 1.9 G/DL (3.5-5.0); ALKALINE PHOSPHATASE 165 U/L (45-117); GLOBULIN 3.1 G/DL (2.5-4.1); GLUCOSE, SERUM 100 MG/DL (60-99); POTASSIUM, SERUM 3.3 MMOL/L (3.5-5.3)
[2017-03-26 17:36] LABS: PROCALCITONIN 0.05 ng/mL (<0.5)
[2017-03-27 12:51] LABS: BASOPHILS 0.7 %; BASOPHILS ABSOLUTE 0.03 10/3/uL (0.0-0.16); EOSINOPHILS ABSOLUTE 0.08 10/3/uL (0.0-0.53); HEMATOCRIT 38.3 % (36.0-48.0); HEMOGLOBIN 12.2 g/dL (12.0-16.0); IMMATURE GRANULOCYTES ABSOLUTE 0.04 10/3/uL (0.0-0.11); LYMPHOCYTES 40.4 %; LYMPHOCYTES ABSOLUTE 1.65 10/3/uL (0.67-4.30); MANUAL DIFF NO %; MEAN CORPUS HGB CONC 31.9 g/dL (32.0-36.0); MEAN CORPUSCULAR HEMOGLOB 29.7 pg (26.0-34.0); MEAN CORPUSCULAR VOLUME 93.2 fL (80-100); MEAN PLATELET VOLUME 10.2 fL (9.2-13.0); MONOCYTES 7.6 %; MONOCYTES ABSOLUTE 0.31 10/3/uL (0.21-1.20); NEUTROPHILS 48.3 %; NEUTROPHILS ABSOLUTE 1.97 10/3/uL (2.02-8.40); PLATELET COUNT 210 10/3/uL (150-400); RBC DISTRIBUTION WIDTH 13.4 % (12.0-16.0); RED CELL COUNT 4.11 10/6/uL (4.0-5.6); WHITE BLOOD CELLS 4.1 10/3/uL (4.5-10.5)
[2017-03-27 12:57] LABS: PREALBUMIN 16.9 MG/DL (17.0-43.0)
[2017-03-27 13:00] LABS: A/G RATIO 0.6 (0.7-1.9); ALBUMIN 2.1 G/DL (3.5-5.0); ALKALINE PHOSPHATASE 174 U/L (45-117); CALCIUM, SERUM 8.2 MG/DL (8.5-10.4); CHLORIDE, SERUM 110 MMOL/L (96-112); CO2 (CARBON DIOXIDE) 30 MMOL/L (24-34); CREATININE 0.46 MG/DL (0.55-1.02); GFR AFRICAN AMERICAN 126 ML/MIN (>=60); GFR NON AFRICAN AMERICAN 109 ML/MIN (>=60); GLOBULIN 3.4 G/DL (2.5-4.1); POTASSIUM, SERUM 4.4 MMOL/L (3.5-5.3); SGOT(AST) 42 U/L (5-40); SGPT(ALT) 47 U/L (5-65); SODIUM, SERUM 142 MMOL/L (135-148); TOTAL BILIRUBIN 0.1 MG/DL (0-1.2); TOTAL PROTEIN 5.5 G/DL (6.0-8.5)
[2017-03-27 13:01] LABS: BUN (BLOOD UREA NITROGEN) 7 MG/DL (6-23); GLUCOSE, SERUM 122 MG/DL (60-99)
[2017-03-27 13:33] LABS: PROCALCITONIN <0.05 ng/mL (<0.5)
[2017-03-28 01:25] LABS: HEMATOCRIT 34.5 % (36.0-48.0); HEMOGLOBIN 11.1 g/dL (12.0-16.0)
[2017-03-28 16:05] LABS: BASOPHILS 0.1 %; BASOPHILS ABSOLUTE 0.01 10/3/uL (0.0-0.16); EOSINOPHILS 0.8 %; EOSINOPHILS ABSOLUTE 0.07 10/3/uL (0.0-0.53); HEMATOCRIT 32.2 % (36.0-48.0); HEMOGLOBIN 10.1 g/dL (12.0-16.0); IMMATURE GRANULOCYTES 0.2 %; IMMATURE GRANULOCYTES ABSOLUTE 0.02 10/3/uL (0.0-0.11); LYMPHOCYTES 12.7 %; LYMPHOCYTES ABSOLUTE 1.11 10/3/uL (0.67-4.30); MEAN CORPUS HGB CONC 31.4 g/dL (32.0-36.0); MEAN CORPUSCULAR HEMOGLOB 29.4 pg (26.0-34.0); MEAN CORPUSCULAR VOLUME 93.9 fL (80-100); MONOCYTES 2.5 %; MONOCYTES ABSOLUTE 0.22 10/3/uL (0.21-1.20); NEUTROPHILS 83.7 %; NEUTROPHILS ABSOLUTE 7.34 10/3/uL (2.02-8.40); PLATELET COUNT 199 10/3/uL (150-400); RED CELL COUNT 3.43 10/6/uL (4.0-5.6)
[2017-03-28 16:09] LABS: MANUAL DIFF NO %; WHITE BLOOD CELLS 8.8 10/3/uL (4.5-10.5)
[2017-03-28 16:19] LABS: BUN (BLOOD UREA NITROGEN) 8 MG/DL (6-23); CALCIUM, SERUM 7.8 MG/DL (8.5-10.4); CHLORIDE, SERUM 112 MMOL/L (96-112); CO2 (CARBON DIOXIDE) 28 MMOL/L (24-34); CREATININE 0.58 MG/DL (0.55-1.02); GFR AFRICAN AMERICAN 117 ML/MIN (>=60); GFR NON AFRICAN AMERICAN 101 ML/MIN (>=60); GLUCOSE, SERUM 93 MG/DL (60-99); SODIUM, SERUM 145 MMOL/L (135-148)
[2017-03-28 17:28] LABS: PROCALCITONIN 2.64 ng/mL (<0.5)
[2017-03-29 06:21] LABS: BASOPHILS 0.2 %; BASOPHILS ABSOLUTE 0.02 10/3/uL (0.0-0.16); EOSINOPHILS 1.2 %; HEMATOCRIT 30.9 % (36.0-48.0); HEMOGLOBIN 9.7 g/dL (12.0-16.0); IMMATURE GRANULOCYTES 0.4 %; IMMATURE GRANULOCYTES ABSOLUTE 0.03 10/3/uL (0.0-0.11); LYMPHOCYTES ABSOLUTE 1.25 10/3/uL (0.67-4.30); MEAN CORPUS HGB CONC 31.4 g/dL (32.0-36.0); MEAN CORPUSCULAR HEMOGLOB 29.8 pg (26.0-34.0); MEAN CORPUSCULAR VOLUME 94.8 fL (80-100); MEAN PLATELET VOLUME 9.5 fL (9.2-13.0); MONOCYTES 3.6 %; NEUTROPHILS 79.6 %; NEUTROPHILS ABSOLUTE 6.65 10/3/uL (2.02-8.40); PLATELET COUNT 228 10/3/uL (150-400); RED CELL COUNT 3.26 10/6/uL (4.0-5.6); WHITE BLOOD CELLS 8.4 10/3/uL (4.5-10.5)
[2017-03-29 06:22] LABS: MANUAL DIFF NO %
[2017-03-29 06:37] LABS: BUN (BLOOD UREA NITROGEN) 8 MG/DL (6-23); CALCIUM, SERUM 7.8 MG/DL (8.5-10.4); CHLORIDE, SERUM 113 MMOL/L (96-112); CO2 (CARBON DIOXIDE) 27 MMOL/L (24-34); CREATININE 0.43 MG/DL (0.55-1.02); GFR AFRICAN AMERICAN 129 ML/MIN (>=60); GFR NON AFRICAN AMERICAN 111 ML/MIN (>=60); SODIUM, SERUM 143 MMOL/L (135-148)
[2017-03-29 06:38] LABS: GLUCOSE, SERUM 112 MG/DL (60-99)
[2017-03-31 08:03] LABS: BASOPHILS 0.4 %; BASOPHILS ABSOLUTE 0.02 10/3/uL (0.0-0.16); HEMATOCRIT 32.5 % (36.0-48.0); HEMOGLOBIN 10.5 g/dL (12.0-16.0); IMMATURE GRANULOCYTES 0.4 %; IMMATURE GRANULOCYTES ABSOLUTE 0.02 10/3/uL (0.0-0.11); LYMPHOCYTES 31.2 %; LYMPHOCYTES ABSOLUTE 1.53 10/3/uL (0.67-4.30); MEAN CORPUS HGB CONC 32.3 g/dL (32.0-36.0); MEAN CORPUSCULAR HEMOGLOB 30.1 pg (26.0-34.0); MEAN CORPUSCULAR VOLUME 93.1 fL (80-100); MEAN PLATELET VOLUME 9.3 fL (9.2-13.0); MONOCYTES 6.5 %; MONOCYTES ABSOLUTE 0.32 10/3/uL (0.21-1.20); NEUTROPHILS 59.5 %; NEUTROPHILS ABSOLUTE 2.92 10/3/uL (2.02-8.40); PLATELET COUNT 278 10/3/uL (150-400); RBC DISTRIBUTION WIDTH 14.4 % (12.0-16.0); RED CELL COUNT 3.49 10/6/uL (4.0-5.6)
[2017-03-31 08:08] LABS: MANUAL DIFF NO %; WHITE BLOOD CELLS 4.9 10/3/uL (4.5-10.5)
[2017-03-31 08:34] LABS: CALCIUM, SERUM 7.9 MG/DL (8.5-10.4); CHLORIDE, SERUM 106 MMOL/L (96-112); CREATININE 0.41 MG/DL (0.55-1.02); GFR AFRICAN AMERICAN 131 ML/MIN (>=60); GFR NON AFRICAN AMERICAN 113 ML/MIN (>=60); GLUCOSE, SERUM 92 MG/DL (60-99); POTASSIUM, SERUM 4.3 MMOL/L (3.5-5.3); SODIUM, SERUM 142 MMOL/L (135-148)
[2017-03-31 08:35] LABS: BUN (BLOOD UREA NITROGEN) 13 MG/DL (6-23); CO2 (CARBON DIOXIDE) 34 MMOL/L (24-34)
[2017-03-31 09:09] LABS: PROCALCITONIN 2.08 ng/mL (<0.5)
[2017-04-01 06:02] LABS: BASOPHILS 0.5 %; BASOPHILS ABSOLUTE 0.02 10/3/uL (0.0-0.16); EOSINOPHILS ABSOLUTE 0.13 10/3/uL (0.0-0.53); HEMATOCRIT 33.8 % (36.0-48.0); HEMOGLOBIN 10.6 g/dL (12.0-16.0); IMMATURE GRANULOCYTES 0.7 %; IMMATURE GRANULOCYTES ABSOLUTE 0.03 10/3/uL (0.0-0.11); LYMPHOCYTES 32.2 %; MEAN CORPUS HGB CONC 31.4 g/dL (32.0-36.0); MEAN CORPUSCULAR HEMOGLOB 29.2 pg (26.0-34.0); MEAN CORPUSCULAR VOLUME 93.1 fL (80-100); MONOCYTES 8.7 %; MONOCYTES ABSOLUTE 0.38 10/3/uL (0.21-1.20); NEUTROPHILS 54.9 %; NEUTROPHILS ABSOLUTE 2.39 10/3/uL (2.02-8.40); PLATELET COUNT 327 10/3/uL (150-400); RBC DISTRIBUTION WIDTH 14.4 % (12.0-16.0); RED CELL COUNT 3.63 10/6/uL (4.0-5.6); WHITE BLOOD CELLS 4.4 10/3/uL (4.5-10.5)
[2017-04-01 06:04] LABS: MANUAL DIFF NO %
[2017-04-01 06:23] LABS: A/G RATIO 0.8 (0.7-1.9); ALBUMIN 2.4 G/DL (3.5-5.0); ALKALINE PHOSPHATASE 146 U/L (45-117); BUN (BLOOD UREA NITROGEN) 12 MG/DL (6-23); CALCIUM, SERUM 8.2 MG/DL (8.5-10.4); CHLORIDE, SERUM 101 MMOL/L (96-112); CO2 (CARBON DIOXIDE) 31 MMOL/L (24-34); CREATININE 0.54 MG/DL (0.55-1.02); GFR AFRICAN AMERICAN 120 ML/MIN (>=60); GFR NON AFRICAN AMERICAN 103 ML/MIN (>=60); GLOBULIN 3.2 G/DL (2.5-4.1); GLUCOSE, SERUM 108 MG/DL (60-99); POTASSIUM, SERUM 4.3 MMOL/L (3.5-5.3); SGOT(AST) 21 U/L (5-40); SGPT(ALT) 18 U/L (5-65); SODIUM, SERUM 137 MMOL/L (135-148); TOTAL BILIRUBIN 0.2 MG/DL (0-1.2); TOTAL PROTEIN 5.6 G/DL (6.0-8.5)
[2017-04-04 06:42] LABS: BASOPHILS 0.7 %; BASOPHILS ABSOLUTE 0.03 10/3/uL (0.0-0.16); EOSINOPHILS 1.2 %; EOSINOPHILS ABSOLUTE 0.05 10/3/uL (0.0-0.53); HEMATOCRIT 33.9 % (36.0-48.0); HEMOGLOBIN 10.8 g/dL (12.0-16.0); IMMATURE GRANULOCYTES 1.4 %; IMMATURE GRANULOCYTES ABSOLUTE 0.06 10/3/uL (0.0-0.11); LYMPHOCYTES 20.6 %; LYMPHOCYTES ABSOLUTE 0.89 10/3/uL (0.67-4.30); MEAN CORPUS HGB CONC 31.9 g/dL (32.0-36.0); MEAN CORPUSCULAR HEMOGLOB 29.3 pg (26.0-34.0); MEAN CORPUSCULAR VOLUME 92.1 fL (80-100); MEAN PLATELET VOLUME 8.5 fL (9.2-13.0); MONOCYTES 6.3 %; MONOCYTES ABSOLUTE 0.27 10/3/uL (0.21-1.20); NEUTROPHILS 69.8 %; NEUTROPHILS ABSOLUTE 3.01 10/3/uL (2.02-8.40); PLATELET COUNT 316 10/3/uL (150-400); RBC DISTRIBUTION WIDTH 14.7 % (12.0-16.0); RED CELL COUNT 3.68 10/6/uL (4.0-5.6); WHITE BLOOD CELLS 4.3 10/3/uL (4.5-10.5)
[2017-04-04 06:46] LABS: MANUAL DIFF NO %
[2017-04-04 06:57] LABS: CALCIUM, SERUM 8.6 MG/DL (8.5-10.4); CHLORIDE, SERUM 109 MMOL/L (96-112); CREATININE 0.38 MG/DL (0.55-1.02); GFR AFRICAN AMERICAN 134 ML/MIN (>=60); GFR NON AFRICAN AMERICAN 116 ML/MIN (>=60); GLUCOSE, SERUM 92 MG/DL (60-99); VANCOMYCIN TROUGH 19.2 MCG/ML (10.0-20.0)
[2017-04-04 07:02] LABS: BUN (BLOOD UREA NITROGEN) 4 MG/DL (6-23); CO2 (CARBON DIOXIDE) 23 MMOL/L (24-34); POTASSIUM, SERUM 3.3 MMOL/L (3.5-5.3); SODIUM, SERUM 144 MMOL/L (135-148)
[2017-04-04 07:38] LABS: PROCALCITONIN 0.16 ng/mL (<0.5)
== END 2017-04-04 17:10 | disposition hospice, inpatient (51) | DRG 871 ==
LOC: ER 05:04 → 4SO 05:19
PROVIDERS: Hospitalist; Internal Medicine; Nurse Practitioner Family
PROC: 0DHA3UZ Insertion of Feeding Device into Jejunum, Percutaneous Approach (ICD-10-PCS; principal; 2017-03-26)
DX: A41.9 Sepsis, unspecified organism (principal); J96.01 Acute respiratory failure with hypoxia; J69.0 Pneumonitis due to inhalation of food and vomit; G93.41 Metabolic encephalopathy; K85.90 Acute pancreatitis without necrosis or infection, unspecified; N17.9 Acute kidney failure, unspecified; I30.9 Acute pericarditis, unspecified; G80.0 Spastic quadriplegic cerebral palsy; E87.0 Hyperosmolality and hypernatremia; F09 Unspecified mental disorder due to known physiological condition; G40.909 Epilepsy, unspecified, not intractable, without status epilepticus; Z66 Do not resuscitate; K21.9 Gastro-esophageal reflux disease without esophagitis; I10 Essential (primary) hypertension; E03.9 Hypothyroidism, unspecified; Z79.899 Other long term (current) drug therapy
CPT/HCPCS: 36600; 49451; 71010; 74176; 80048; 80053; 80202; 81001; 82805; 82962; 83605; 83690; 83735; 83930; 84100; 84132; 84134; 84145; 84443; 84484; 85014; 85018; 85025; 85610; 85730; 87040; 87493; 87493-59; 93005; 93306; 96365; 96375; 99285; A9270-GY; C1769; C9113; J0456; J0692; J1953; J1956; J2250; J2405; J2543; J3010; J3370; P9047; Q9967